=== PATIENT | male | born 1985 ===

== ENCOUNTER 2016-12-19 09:01 | Emergency (ER) | payer OTHER ==
[2016-12-19 09:11] VITALS: BMI 28.8
[2016-12-19 09:13] VITALS: TEMP 98.1; O2SAT 98
[2016-12-19] MEDS ORDERED: Lidocaine 5% Patch TD STA (09:36)
--- NOTE | 2016-12-19 09:37 | C.PDOC ---
History Of Present Illness 31 year old male presents to the ED with complaints of persistent left sided headache, left back pain and is status post fall 1 week ago. Patient states onset of complaints while playing soccer after falling onto left side and hitting left side head and mid left back localized worse with movement. He notes localized intermittent "throbbing" headache and no relief with Advil. Patient denies nausea, vomiting, associated focal weakness/numbness, or other associated symptoms. - HPI Time Seen by Provider: 12/19/16 09:28 Chief Complaint (Nursing): Back Pain History Per: Patient History/Exam Limitations: no limitations Onset/Duration Of Symptoms: Days (1 week ), Persistent Location Of Injury: Left: Back, Head Recent travel outside of the [place]: No Past Medical History Reviewed: Historical Data, Nursing Documentation, Vital Signs Vital Signs: Last Vital Signs Temp 98.1 F 12/19/16 09:11 Pulse 81 12/19/16 10:48 Resp 16 12/19/16 10:48 BP 108/75 12/19/16 10:48 Pulse Ox 98 12/19/16 10:48 Family History: States: Unknown Family Hx - Social History Hx Alcohol Use: Yes Hx Substance Use: No - Immunization History Hx Tetanus Toxoid Vaccination: No Hx Influenza Vaccination: No Hx Pneumococcal Vaccination: No Review Of Systems Constitutional: Negative for: Fever Cardiovascular: Negative for: Chest Pain Respiratory: Negative for: Shortness of Breath Gastrointestinal: Negative for: Nausea, Vomiting, Abdominal Pain Musculoskeletal: Positive for: Back Pain (left mid-back pain). Negative for: Neck Pain Neurological: Positive for: Headache (left sided). Negative for: Weakness, Numbness Physical Exam - Physical Exam Appears: Non-toxic, No Acute Distress Skin: Warm, Dry Head: Atraumatic, No Tenderness, No Swelling, No Abrasion, No Laceration, Other (no photophobia) Eye(s): bilateral: Normal Inspection, PERRL, EOMI Ear(s): Bilateral: Normal Nose: Normal, No Discharge Oral Mucosa: Moist Throat: Normal, No Erythema, No Exudate Neck: Normal ROM, No Midline Cervical Tenderness, No Paracervical Tenderness, Supple Chest: Symmetrical, No Deformity Cardiovascular: Rhythm Regular Respiratory: Normal Breath Sounds, No Rhonchi, No Wheezing Back: Paraspinal Tenderness (lumbar paraspinal tenderness ), Other (no gross deformity ) Extremity: Normal ROM, No Tenderness, Capillary Refill (good capillary refill, less than two seconds. ) Neurological/Psych: Oriented x3, Normal Speech, Normal Cognition, Normal Cranial Nerves, Normal Motor, Normal Sensation, Normal Reflexes, Other (no focal deficits) ED Course And Treatment O2 Sat by Pulse Oximetry: 98 (room air ) Pulse Ox Interpretation: Normal - Other Rad LS SPINE X-Ray: Read By Radiologist (NEG; DISCUSSED WITH DR. RODRIGUEZ) Disposition Counseled Patient/Family Regarding: Studies Performed, Diagnosis, Need For Followup - Disposition Referrals: [facility] [Outside] [facility] [Outside] Disposition: HOME/ ROUTINE Disposition Time: 10:41 Condition: IMPROVED Additional Instructions: REMOVE PATCH 12 HOURS AFTER INITIAL APPLICATION. Prescriptions: Acetaminophen [Tylenol Extra Strength] 2 tab PO Q6 #30 tablet Cyclobenzaprine [Flexeril] 10 mg PO TID #15 tab Ibuprofen [Motrin] 600 mg PO Q6 #30 tab Instructions: Head Injury (ED), Back Pain (ED) Print Language: HUNGARIAN - Clinical Impression Clinical Impression: Low back strain, Minor head injury, Headache - Scribe Statement The provider has reviewed the documentation as recorded by the Scribe Cassidy Beal All medical record entries made by the Scribe were at my direction and personally dictated by me. I have reviewed the chart and agree that the record accurately reflects my personal performance of the history, physical exam, medical decision making, and the department course for this patient. I have also personally directed, reviewed, and agree with the discharge instructions and disposition.
[2016-12-19] MEDS ORDERED: Lidocaine 5% Patch TD ONE (09:41)
--- NOTE | 2016-12-19 10:16 | CT ---
PROCEDURE: CT HEAD WITHOUT CONTRAST. HISTORY: L SIDED TRAUMA 1 WEEK AGO COMPARISON: None available. TECHNIQUE: Axial computed tomography images were obtained through the head/brain without intravenous contrast. Radiation dose: Total exam DLP = 939 mGy-cm. This CT exam was performed using one or more of the following dose reduction techniques: Automated exposure control, adjustment of the mA and/or kV according to patient size, and/or use of iterative reconstruction technique. FINDINGS: HEMORRHAGE: No intracranial hemorrhage. Focal area of increased attenuation in the left basal ganglia suggestive for calcification. Milder punctate foci of increased attenuation in the right basal ganglia also suggestive for calcification. Punctate foci of rounded increased attenuation seen within the medial posterior left occipital lobe suggestive for calcifications from granulomatous changes. Clinical correlation. Prominent calcification of the choroid plexus bilaterally. BRAIN: Punctate focal hypodensity seen within the right frontal subcortical white matter seen on series 4, image 27 which may represent some mild chronic microvascular ischemic change. VENTRICLES: Unremarkable. No hydrocephalus. CALVARIUM: Unremarkable. PARANASAL SINUSES: Mild mucosal thickening of the sphenoid sinus. Small partially calcified possible osteoma within the mid right ethmoid air cells. MASTOID AIR CELLS: Unremarkable as visualized. No inflammatory changes. OTHER FINDINGS: Well-demarcated rounded foci of increased sclerosis seen adjacent to the bilateral frontal sinuses within the bone which may represent bone islands. Clinical correlation. IMPRESSION: No acute intracranial abnormality. Additional findings as above. If focal neurologic deficit persists, consider MRI.
[2016-12-19 10:49] VITALS: BP 108/75; PULSE 81; RESP 16
--- NOTE | 2016-12-19 13:53 | RAD ---
Lumbar spine three views History: Trauma. Comparison: None available. Findings: Vertically-oriented lucency through the right transverse process of the L1 vertebral body. This is of uncertain clinical etiology and may represent a fracture deformity versus nonunited transverse process of the right L1 vertebral body. Clinical correlation. Correlation with MRI may be helpful if clinically indicated. Mild anterior osteophyte formation at the T11-12 level. Impression: Vertically-oriented lucency through the right transverse process of the L1 vertebral body. This is of uncertain clinical etiology and may represent a fracture deformity versus nonunited transverse process of the right L1 vertebral body. Clinical correlation. Correlation with MRI may be helpful if clinically indicated. Mild anterior osteophyte formation at the T11-12 level. These findings were discussed with Dr. Maradiaga at 11:10 a.m. on 12/19/2016.
== END 2016-12-19 10:48 | disposition home or self-care (01) ==
LOC: C.ER 09:01
DX: S39.012A Strain of muscle, fascia and tendon of lower back, initial encounter (principal); S09.90XA Unspecified injury of head, initial encounter; R51 Headache; W18.30XA Fall on same level, unspecified, initial encounter; Y93.66 Activity, soccer

== ENCOUNTER 2017-03-06 08:01 | Emergency (ER) | payer OTHER ==
[2017-03-06 08:02] VITALS: BMI 28.8
[2017-03-06 09:02] LABS: RBC URINE < 1 /hpf (0-3); URINE BILIRUBIN NEGATIVE (NEGATIVE); URINE BLOOD NEGATIVE (NEGATIVE); URINE COLOR Yellow (YELLOW); URINE GLUCOSE (UA) NORMAL (Normal); URINE KETONE NEGATIVE (NEGATIVE); URINE LEUKOCYTE ESTERASE NEG Leu/uL (Negative); URINE PROTEIN NEGATIVE (NEGATIVE); URINE UROBILINOGEN NORMAL mg/dL (0.2-1.0); WBC URINE < 1 /hpf (0-5)
[2017-03-06] MEDS ORDERED: cefTRIAXone (Rocephin) 250 mg Inj IM STA (09:39)
--- NOTE | 2017-03-06 09:57 | C.PDOC ---
History Of Present Illness Brock Hein is a 31 year old male, with no past medical history, who presents to the emergency department complaining of dysuria associated with urinary frequency and suprapubic pain onset for 3 days. Patient states last night he developed pain to the peroneal area. Patient denies fever, vomit, diarrhea, GI bleeding, chest pain, shortness of breath or back pain. No further medical complaints. PMD: Time Seen by Provider: 03/06/17 08:15 Chief Complaint (Nursing): Male Genitourinary History Per: Patient History/Exam Limitations: no limitations Onset/Duration Of Symptoms: Days (x3) Current Symptoms Are (Timing): Still Present Associated Symptoms: Urinary Symptoms (increased requency ), Other (suprapubic pain). denies: Fever, Nausea, Vomiting, Diarrhea, Back Pain Past Medical History Reviewed: Historical Data, Nursing Documentation, Vital Signs Vital Signs: Last Vital Signs Temp 97.9 F 03/06/17 09:59 Pulse 52 L 03/06/17 09:59 Resp 18 03/06/17 09:59 BP 107/70 03/06/17 09:59 Pulse Ox 97 03/06/17 10:28 - Medical History PMH: No Chronic Diseases Family History: States: Unknown Family Hx - Social History Hx Alcohol Use: Yes Hx Substance Use: No - Immunization History Hx Tetanus Toxoid Vaccination: No Hx Influenza Vaccination: No Hx Pneumococcal Vaccination: No Review Of Systems Except As Marked, All Systems Reviewed And Found Negative. Constitutional: Negative for: Fever Cardiovascular: Negative for: Chest Pain Respiratory: Negative for: Shortness of Breath Gastrointestinal: Positive for: Abdominal Pain (suprapubic pain). Negative for : Vomiting, Diarrhea, Other (GI bleeding ) Genitourinary: Positive for: Dysuria, Frequency (increased ) Musculoskeletal: Positive for: Foot Pain (peroneal ). Negative for: Back Pain Physical Exam - Physical Exam Appears: Non-toxic Skin: Normal Color, Warm, Dry, No Rash Head: Atraumatic, Normacephalic Eye(s): bilateral: Normal Inspection Cardiovascular: Rhythm Regular, No Murmur Respiratory: Normal Breath Sounds Gastrointestinal/Abdominal: Normal Exam, Bowel Sounds, Soft, No Tenderness Back: Normal Inspection, No CVA Tenderness Male Genital: Normal Inspection (normal scrotum and testicles), Other (No tenderness to the perineum or rashes) Extremity: Normal ROM, No Tenderness, No Swelling Neurological/Psych: Normal Speech, Normal Cognition, Normal Motor, Normal Sensation Gait: Steady ED Course And Treatment O2 Sat by Pulse Oximetry: 97 (RA) Pulse Ox Interpretation: Normal Medical Decision Making Medical Decision Making: Initial Plan: --Chlamydia/GC RNA, TMA --Zithromax 1,000 mg PO --Rocephin 250mg IM --Urine culture --reevaluation Scribe Attestation Written by Flaquito Oliver acting as a scribe for Sasha STEVENSON All medical record entries made by the Scribe were at my direction and personally dictated by me. I have reviewed the chart and agree that the record accurately reflects my personal performance of the history, physical exam, medical decision making, and the department course for this patient. I have also personally directed, reviewed, and agree with the discharge instructions and disposition. Disposition - Disposition Referrals: [facility] [Outside] Disposition: HOME/ ROUTINE Disposition Time: 09:54 Condition: GOOD Additional Instructions: Follow up with the doctor within 1-2 days without fail. Return if worsened Prescriptions: Ciprofloxacin HCl [Cipro] 500 mg PO BID #20 tab Instructions: Nonspecific Urethritis in Men (ED), Urinary Tract Infection in Men (ED) Forms: [facility] ([place]) Print Language: IRISH - Clinical Impression Clinical Impression: Urethritis
[2017-03-06 10:00] VITALS: BP 107/70; PULSE 52; RESP 18; TEMP 97.9
[2017-03-06 10:19] VITALS: O2SAT 97
== END 2017-03-06 10:43 | disposition home or self-care (01) ==
LOC: C.ER 08:01
DX: N34.2 Other urethritis (principal)
CPT/HCPCS: 81001; 87086; 87491; 87591; 96372; 99285; J0696